=== PATIENT | male | born 1965 | race Two or more races ===

== ENCOUNTER 2022-11-22 12:53 | Outpatient (CLI) | payer OTHER ==
[~2022-11-22 12:53] MED LIST: KETO10TA2 PO
== END 2022-11-22 12:55 | disposition home or self-care (01) ==
LOC: RAD 12:53
PROVIDERS: ATTEND General Practice
DX: N20.0 Calculus of kidney (principal)

== ENCOUNTER 2022-11-30 12:47 | Outpatient (CLI) | payer OTHER | END 2022-11-30 12:59 | disposition home or self-care (01) | LOC: SONOGRAMA 12:47 | PROVIDERS: ATTEND General Practice | DX: N20.0 Calculus of kidney (principal) ==